=== PATIENT | male | born 2000 | race Caucasian/White ===

== ENCOUNTER 2023-12-09 07:29 | Day surgery (SDC) | payer OTHER ==
[~2023-12-09] VITALS: Ht 177.8 cm; Wt 86.1 kg
[~2023-12-09 07:29] MED LIST: TRANEXAMIC ACID 100 MG/ML 10ML VIAL IV ONE; VITA100024 PO; VITA100093 PO
[2023-12-09] MEDS ORDERED: LR 1,000 ML IV SCH ×2 (07:35→11:15)
[2023-12-09] MEDS: MIDAZOLAM INJ 2MG/2ML VIAL IV PRN (08:47)
[2023-12-09] MEDS: fentaNYL 100 MCG/2 ML INJECTION IV PRN (08:47)
[2023-12-09] MEDS ORDERED: TRANEXAMIC ACID 100 MG/ML 10ML VIAL As Ordered ONE (08:56)
[2023-12-09] MEDS ORDERED: EPINEPHrine 1MG/ML INJ 30ML MD-VIAL As Ordered ONE (08:57)
[2023-12-09] MEDS: EPINEPHrine INJ 1 MG/ML 1ML AMP PN ONE (09:00)
[2023-12-09] MEDS: ROPIvacaine 0.5% 30ML VIAL PN ONE (09:00)
[2023-12-09] MEDS: LIDOCAINE 1% SDV 5ML VIAL PN ONE (09:00)
[2023-12-09] MEDS: dexAMETHasone 10MG/1ML VIAL PRES.FREE PN ONE (09:00)
[2023-12-09] MEDS ORDERED: propofoL 200 MG/20 ML VIAL As Ordered ONE (09:04)
[2023-12-09] MEDS ORDERED: ePHEDrine SULFATE 25 MG/5 ML(5MG/ML) SYRINGE As Ordered ONE (09:04)
[2023-12-09] MEDS ORDERED: ONDANSETRON 4MG 2ML VIAL As Ordered ONE (09:04)
[2023-12-09] MEDS ORDERED: LIDOCAINE 2% 100MG/5ML SDV (FOR ANES.) As Ordered ONE (09:04)
[2023-12-09] MEDS ORDERED: fentaNYL 100 MCG/2 ML INJECTION As Ordered ONE (09:04)
[2023-12-09] MEDS ORDERED: ROCURONIUM BROMIDE 50MG/5ML VIAL As Ordered ONE (09:04)
[2023-12-09] MEDS ORDERED: PHENYLephrine 500MCG 5ML (100MCG/ML) SYRINGE As Ordered ONE (09:04)
[2023-12-09] MEDS: ceFAZolin SOD 2 GM in IV 1 EA IV ONE (09:42)
[2023-12-09] MEDS ORDERED: HYDROmorphone HCL 2MG/ML 1ML VIAL As Ordered ONE (09:59)
[2023-12-09] MEDS ORDERED: SUGAMMADEX SODIUM 500 MG/5 ML VIAL (BRIDION) As Ordered ONE (10:41)
[2023-12-09] MEDS ORDERED: ACETAMINOPHEN 1000MG 100ML IV BAG As Ordered ONE (10:42)
[2023-12-09] MEDS ORDERED: fentaNYL 100 MCG/2 ML INJECTION IV PRN (11:15)
[2023-12-09] MEDS ORDERED: ONDANSETRON 4MG 2ML VIAL IV PRN (11:15)
[2023-12-09] MEDS: oxyCODONE 5MG TAB PO PRN (12:00)
[2023-12-09] MEDS: HYDROMORPHONE HCL 0.5 MG/ 0.5 ML SYRINGE IV PRN (12:24)
[2023-12-09 12:35] VITALS: BP 114/60; TEMP 97.8; O2SAT 97
== END 2023-12-09 13:50 | disposition home or self-care (01) ==
LOC: M SDC 07:29
PROVIDERS: ATTEND Orthopaedic Surgery
DX: S83.282A Other tear of lateral meniscus, current injury, left knee, initial encounter (principal); X50.0XXA Overexertion from strenuous movement or load, initial encounter; Y93.9 Activity, unspecified; Y92.9 Unspecified place or not applicable; Z79.82 Long term (current) use of aspirin; Z79.899 Other long term (current) drug therapy
CPT/HCPCS: 29882; C1713; J0131; J0171; J0665; J0690; J1100; J1170; J2250; J2405; J3010